=== PATIENT | male | born 1940 | race African-American/Black ===

== ENCOUNTER 2019-01-28 10:49 | Outpatient (CLI) | payer OTHER ==
[~2019-01-28 10:49] MED LIST: ALTACE5 MG PO; ASA81 MG PO; AVANDIA4 MG PO; FOLIC ACID0.4 MG PO; LIPITOR40 MG PO
== END 2019-01-28 10:56 | disposition home or self-care (01) ==
LOC: RAD 10:49
DX: M54.5 Low back pain (principal)

== ENCOUNTER 2019-03-13 11:51 | Outpatient (CLI) | payer OTHER | END 2019-03-13 12:01 | disposition home or self-care (01) | LOC: RAD 11:51 | DX: M25.561 Pain in right knee (principal); M25.521 Pain in right elbow ==

== ENCOUNTER 2022-08-08 08:25 | Outpatient (CLI) | payer OTHER | END 2022-08-08 08:38 | disposition home or self-care (01) | LOC: MRI 08:25 | PROVIDERS: ATTEND General Practice | DX: M25.521 Pain in right elbow (principal); E11.8 Type 2 diabetes mellitus with unspecified complications; I10 Essential (primary) hypertension | CPT/HCPCS: 73221 ==